=== PATIENT | male | born 1980 | race Caucasian/White ===

== ENCOUNTER 2017-03-07 08:20 | Emergency (ER) | payer SELFPAY ==
[~2017-03-07] VITALS: Ht 188 cm; Wt 63.5 kg
[2017-03-07] MEDS ORDERED: ASPIRIN 81 MG TABLET CHEW PO ONE (09:00)
[2017-03-07] MEDS ORDERED: ONDANSETRON 2MG/ML, 2ML IVPush ONE (09:00)
[2017-03-07] MEDS ORDERED: SODIUM CHLORIDE 0.9% 1,000ML IVBOLUS ONE (09:00)
[2017-03-07] MEDS ORDERED: MORPHINE SULFATE 4 MG/ML, 1ML IVPush PRN (09:00)
[2017-03-07] MEDS ORDERED: MORPHINE SULFATE 4 MG/ML, 1ML ONE (09:05)
[2017-03-07] MEDS ORDERED: ONDANSETRON 2MG/ML, 2ML ONE (09:05)
[2017-03-07] MEDS ORDERED: ASPIRIN 81 MG TABLET CHEW ONE (09:05)
[2017-03-07 09:26] LABS: ASPARTATE AMINO TRANSFERASE 10 U/L (15-37); BLOOD UREA NITROGEN 10 mg/dL (7-18)
[2017-03-07 09:31] LABS: IS PT STATUS REG ER OR PRE ER? YES
[2017-03-07 10:05] LABS: DAU SCREEN DISCLAIMER
[2017-03-07 10:56] VITALS: BP 127/96
== END 2017-03-07 10:58 | disposition home or self-care (01) ==
LOC: ED 08:49
DX: R07.89 Other chest pain (principal); F15.180 Other stimulant abuse with stimulant-induced anxiety disorder; F17.210 Nicotine dependence, cigarettes, uncomplicated
CPT/HCPCS: 36415; 71010; 80053; 80307; 84484; 85025; 85379; 93005; 96361; 96374; 96375; 99285; J2405; J7030